=== PATIENT | female | born 1970 | race Caucasian/White ===

== ENCOUNTER → 2018-10-15 11:48 | Outpatient (CLI) | payer BC, SELFPAY ==
--- NOTE | 2018-10-15 | DI.US.S_ITS ---
PROCEDURE: US ABDOMEN COMPLETE INDICATIONS: ABNORMAL BLOOD CHEMISTRY TECHNIQUE: Real-time scanning was performed of the abdominal and retroperitoneal organs, with image documentation. COMPARISON: None. FINDINGS: Liver: Liver is normal in size and homogeneous in echotexture. Gallbladder: Unremarkable. No sonographic Pimentel sign Biliary ducts: Intrahepatic bile ducts are non-dilated. Extrahepatic bile duct caliber measures 5-6 mm. Normal is 6-7 mm or less in diameter, or 10 mm or less post-cholecystectomy. Pancreas: Visualized portions of the pancreas are sonographically normal. Spleen: Spleen is normal in size and homogeneous in echotexture. Kidneys: Kidneys are normal in size and echotexture. Right kidney measures 10.2 cm long; left kidney measures 10.0 cm long. No hydronephrosis or nephrolithiasis. No solid masses. Aorta: Visualized aorta is normal in caliber at less than 3 cm. Iliacs: Proximal common iliac arteries are normal in caliber at less than 2.5 cm. IVC: Intrahepatic inferior vena cava is patent. Miscellaneous: No free abdominal fluid. IMPRESSION: Negative examination as above. Dictated by: Carlos Carbajal M.D. on 10/15/2018 at 12:52 Approved by: Carlos Carbajal M.D. on 10/15/2018 at 12:54
== END ==
PROVIDERS: Family Provider Internal Medicine Rheumatology; Visit Provider Internal Medicine Rheumatology
DX: R79.9 Abnormal finding of blood chemistry, unspecified (principal)
CPT/HCPCS: 76700